=== PATIENT | male | born 1980 | race Caucasian/White ===

== ENCOUNTER 2016-08-23 16:59 | Emergency (ER) ==
[2016-08-23 17:01] VITALS: BP 142/93; TEMP 98.4; BMI 34.9
--- NOTE | 2016-08-23 17:32 | ED.PDOC ---
[id number]: dental pain Time Seen by Physician: 17:00 Mode of Arrival: Walk-In Information Source: Patient Exam Limitations: No limitations Nursing and Triage Documentation Reviewed and Agree: Yes EENT Complaint Exam - Dental/Oral Complaint/Exam Mechanism of Injury: No known trauma Symptoms Are: Still present Timing: Constant Initial Severity: Moderate Current Severity: Moderate Character: Reports: Aching, Throbbing Aggravating: Reports: Heat, Cold, Chewing Associated Signs and Symptoms: Denies: Swelling, Discharge, Fever, Foul odor, Foul taste in mouth Related History: Reports: Similar episode Cardiac Risk Factors: Reports: None Dental/Oral Surgical History: Reports: None Tooth Findings: Present: Gross decay Cervical Lymphadenopathy Present: No Facial Swelling Present: No Bleeding Present: No Oropharynx Findings: Absent: Clots, Active bleeding Septal Hematoma: No Foreign Body Present: No Dysphagia Present: No Drooling Present: No Asymmetrical Tonsillar Swelling Present: No Uvula Midline: Yes Harmony-tonsillar Fluctuence: No Trismus Present: No Palatal Petechiae Present: No Scarlatinaform Rash Present: No Teeth Picture: 1 - decay Differential Diagnoses: Dental Caries Review of Systems - Review Of Systems Constitutional: Reports: No symptoms Eyes: Reports: No symptoms Ears, Nose, Mouth, Throat: Reports: No symptoms Respiratory: Reports: No symptoms Cardiac: Reports: No symptoms GI: Reports: No symptoms : Reports: No symptoms Musculoskeletal: Reports: No symptoms Skin: Reports: No symptoms Neurological: Reports: No symptoms Endocrine: Reports: No symptoms Hematologic/Lymphatic: Reports: No symptoms All Other Systems: Reviewed and Negative Past Medical History - Past Medical History Previously Healthy: Yes Endocrine: Reports: None Cardiovascular: Reports: None Respiratory: Reports: None Hematological: Reports: None Gastrointestinal: Reports: Other (HEPC) Genitourinary: Reports: None Neuro/Psych: Reports: None Musculoskeletal: Reports: Back Pain Cancer: Reports: None Other Pertinent Past Medical History: sx RIGHT ANKLE BACK PAIN - Surgical History General Surgical History: Reports: Orthopedic (sx RIGHT ANKLE) - Family History Family History: Reports: Unknown - Social History Smoking Status: Current every day smoker, Light tobacco smoker Hx Substance Use: No Alcohol Screening: Occasionally Physical Exam - Physical Exam Appearance: Well-appearing, No pain distress, Well-nourished Eyes: SUSANNE, EOMI, Conjunctiva clear ENT: Ears normal, Nose normal, Oropharynx normal Respiratory: Airway patent, Breath sounds clear, Breath sounds equal, Respirations nonlabored Cardiovascular: RRR, Pulses normal, No rub, No murmur GI/: Soft, Nontender, No masses, Bowel sounds normal, No Organomegaly Musculoskeletal: Normal strength, ROM intact, No edema, No calf tenderness Skin: Warm, Dry, Normal color Neurological: Sensation intact, Motor intact, Reflexes intact, Cranial nerves intact, Alert, Oriented Psychiatric: Affect appropriate, Mood appropriate Critical Care Note - Critical Care Note Total Time (mins): 0 Course - Course Vital Signs: Temp Pulse Resp BP Pulse Ox 08/23/16 16:59 98.4 F 70 18 142/93 H 97 Departure - Departure Time of Disposition: 17:31 Disposition: HOME SELF-CARE Discharge Problem: Toothache Instructions: Toothache (ED), Dental Caries (ED) Condition: Good Pt referred to PMD for follow-up: No Additional Instructions: Please call your Family Physician as soon as possible to schedule a follow-up appointment. Prescriptions: Hydrocodone/Acetaminophen [[place] 5-325 Tablet] 1 each PO Q6HR PRN #12 tablet PRN Reason: PAIN Amoxicillin 500 mg PO Q8HR #21 tablet Allergies/Adverse Reactions: Allergies codeine Adverse Reaction (Verified 08/23/16 17:01) Home Medications: Ambulatory Orders Gabapentin [Neurontin] 600 mg PO TID 05/10/16 Ibuprofen 800 mg PO TID #30 tablet 05/10/16 Amoxicillin 500 mg PO Q8HR #21 tablet 08/23/16 Hydrocodone/Acetaminophen [[place] 5-325 Tablet] 1 each PO Q6HR PRN #12 tablet 01/02
== END 2016-08-23 17:36 | disposition home or self-care (01) ==
LOC: ED 16:59
DX: K08.89 Other specified disorders of teeth and supporting structures (principal); K02.7 Dental root caries; F17.210 Nicotine dependence, cigarettes, uncomplicated; Z79.899 Other long term (current) drug therapy
CPT/HCPCS: 99282

== ENCOUNTER 2017-10-06 13:19 | Outpatient (CLI) ==
--- NOTE | 2017-10-06 14:27 | DI ---
Exam: Four x-rays of the cervical spine. Comparison: CT performed 11/30/2015. Reason for exam: Neck pain. FINDINGS: Operative changes are seen after anterior cervical discectomy and fusion spanning C5-6. T here is no evidence of hardware complication or graft extrusion. There is a normal appearing cervica l lordotic curve. The prevertebral soft tissues are within normal limits. No acute fracture or list hesis. The dens is intact on the open-mouth odontoid view. Impression: 1. Operative changes after anterior cervical discectomy and fusion spanning C5-C6 without evidence o f hardware complication. 2. No acute fracture or listhesis in the cervical spine
== END 2017-10-06 13:20 | disposition home or self-care (01) ==
LOC: LAB 13:19
PROVIDERS: ATTEND Nurse Practitioner Family
DX: Z20.2 Contact with and (suspected) exposure to infections with a predominantly sexual mode of transmission (principal); M54.2 Cervicalgia; K21.9 Gastro-esophageal reflux disease without esophagitis; R41.3 Other amnesia; G89.4 Chronic pain syndrome; E66.9 Obesity, unspecified
CPT/HCPCS: 36415; 80053; 80061; 80074; 80306; 81001; 84439; 84443; 85025; 86592; 86631; 86677; 86695; 86696; 86701; 87800

== ENCOUNTER 2018-03-20 20:16 | Emergency (ER) ==
[2018-03-20 20:19] VITALS: BMI 38.3
[2018-03-20] MEDS ORDERED: LACTATED RINGERS 1,000 ML IV STA (20:52)
[2018-03-20] MEDS ORDERED: MORPHINE 2 MG/ML SYRINGE IVP STA (21:41)
[2018-03-20] MEDS ORDERED: ZOFRAN 4 MG/2 ML IVP STA (21:41)
--- NOTE | 2018-03-20 23:07 | CT ---
EXAM: CT scan abdomen pelvis without contrast HISTORY: Abdominal pain COMPARISON: None. FINDINGS: Contiguous axial images obtained from lung bases to the symphysis pubis without contrast u tilizing 3-mm collimation. Sagittal and coronal reconstructions were imaged and reviewed. There is a 7.5 mm nodule the right lung base which merits follow-up. Gallbladder is fluid filled without anu lithiasis. The liver, pancreas, spleen and adrenal glands have normal unenhanced CT appearance. The abdominal aorta is normal in course caliber without aneurysm. There are prominent air and fluid tanner led loops of small bowel within the left abdomen which may be related to ileus versus gastroenteritis . There is a normal appendix. There is a small umbilical hernia containing only fat.. The prostate gland normal in size. The bladder is small volumed limiting evaluation.. There is no free fluid or inflammatory changes. Degenerative changes are seen within the lower lumbar spine appear IMPRESSION: 7.5 mm nodule right lung base which merits follow-up. Prominent small bowel loops left abdomen which may be related to ileus versus gastroenteritis. No free fluid or inflammatory changes
--- NOTE | 2018-03-20 23:26 | ED.PDOC ---
General ED Provider: Dr. PA THAO Chief Complaint: Abdominal Pain Stated Complaint: Patient is a 38 year old male who comes to the ER with complains of feeling dehydrated. He did not give us a good history but family states he has had problems with Alcohol abuse. States he has cramping on the legs and chest area for one day. He denies any Drug use on initial history taking. Admitted to [facility] after being confronted with Test results. was seen at [facility] for Tooth ache. Time Seen by Physician: 20:30 Mode of Arrival: Walk-In Information Source: Patient Exam Limitations: No limitations Primary Care Provider: KAL PRICE Seen Within Last 72 Hours for Same Complaint By: ED Nursing and Triage Documentation Reviewed and Agree: Yes Does patient meet sepsis criteria?: No System Inflammatory Response Syndrome: Pulse >90 BPM Sepsis Protocol: For patient's 13 years and over: Temp is 96.8 and below OR 101 and greater Pulse >90 BPM Resp >20/minute Acutely Altered Mental Status Are patient's symptoms suggestive of a new infection, such as: -Pneumonia -Skin, Soft Tissue -Endocarditis -UTI -Bone, Joint Infection -Implantable Device -Acute Abdominal Infection -Wound Infection -Meningitis -Blood Stream Catheter Infection -Unknown Musculoskeletal Complaint Exam - Lower Extremity Complaint/Exam Location of Pain: Reports: Right, Left Mechanism of Injury: Reports: No known trauma Onset/Duration: 1 day Symptoms Are: Still present Location: Reports: Diffuse Character: Reports: Spasmodic Alleviating: Reports: None Aggravating: Reports: Movement, Prolonged standing Able to Bear Weight: Yes DVT Risk Factors: Reports: None Septic Arthritis Risk Factors: Reports: None Related Surgical History: Reports: None Differential Diagnoses: Strain, Sprain, Other (Rhabdomyolysis ) Review of Systems - Review Of Systems Constitutional: Reports: No symptoms Eyes: Reports: No symptoms Ears, Nose, Mouth, Throat: Reports: No symptoms Respiratory: Reports: No symptoms Cardiac: Reports: Chest pain GI: Reports: No symptoms : Reports: No symptoms Musculoskeletal: Reports: Muscle pain Skin: Reports: No symptoms Neurological: Reports: Anxiety Endocrine: Reports: No symptoms Hematologic/Lymphatic: Reports: No symptoms All Other Systems: Reviewed and Negative Past Medical History - Past Medical History Previously Healthy: Yes Endocrine: Reports: None Cardiovascular: Reports: None Respiratory: Reports: None Hematological: Reports: None Gastrointestinal: Reports: Other (HEP C) Genitourinary: Reports: None Neuro/Psych: Reports: None Musculoskeletal: Reports: Back Pain Cancer: Reports: None Other Pertinent Past Medical History: sx RIGHT ANKLE BACK PAIN, Alcohol use and Dependence, Drug dependence. - Surgical History General Surgical History: Reports: Orthopedic (sx RIGHT ANKLE) - Family History Family History: Reports: Unknown - Social History Smoking Status: Current every day smoker, Heavy tobacco smoker Hx Substance Use: No Alcohol Screening: Occasionally - Immunizations Tetanus Shot up to Date: Yes Physical Exam - Physical Exam Appearance: Ill-appearing, Obese (umkempt ) Ill-appearing: Moderate Pain Distress: Severe Neck: Supple Respiratory: Airway patent, Breath sounds clear, Breath sounds equal, Respirations nonlabored Cardiovascular: Tachycardia GI/: Soft, Nontender, No masses, Bowel sounds normal, No Organomegaly Musculoskeletal: Normal strength, ROM intact, No edema, No calf tenderness Skin: Warm, Dry, Normal color Neurological: Sensation intact, Cranial nerves intact, Alert, Oriented Psychiatric: Anxious Interpretation - Radiology Interpretation Radiology Interpretation By: Radiologist Radiology Results: Negative Exam Interpreted: CT Scan (Abdomen ) - EKG Interpretation Time of EKG #1: 20:52 Rate: Tachy Rhythm: Sinus Ectopy: None [place]: NL ST Segment: Normal Interpretation: Sinus Tachycardia Re-Evaluation - Re-Evaluation Time of Re-Evaluation: 23:57 Status: Improved (but still in pain, wants more pain medication. ) Vital Signs Stable: Yes Physician Notification - Case Discussed Physician Notified: Ruxer Time of Notification: 00:05 Critical Care Note - Critical Care Note Total Time (mins): 35 Course - Course Hematology/Chemistry: 03/20/18 20:56 03/20/18 20:56 Orders, Labs, Meds: Lab Review 03/20/18 03/20/18 03/20/18 20:50 20:56 20:56 WBC 11.43 H RBC 5.27 Hgb 16.2 Hct 44.3 MCV 84.1 MCH 30.7 MCHC 36.6 H RDW Coeff of Noah 13.2 Plt Count 229 Immature Gran % (Auto) 0.6 Neut % (Auto) 61.7 Lymph % (Auto) 24.8 [place] % (Auto) 11.7 H Eos % (Auto) 0.6 Baso % (Auto) 0.6 Immature Gran # (Auto) 0.1 Neut # (Auto) 7.0 H Lymph # (Auto) 2.8 [place] # (Auto) 1.3 Eos # (Auto) 0.1 Baso # (Auto) 0.1 Sodium 134.0 L Potassium 3.30 L Chloride 93.0 L Carbon Dioxide 25.0 Anion Gap 19.30 BUN 30.0 H Creatinine 1.70 H Estimated GFR (MDRD) 46.00 BUN/Creatinine Ratio 17.64 Glucose 126.0 H Calcium 10.20 Magnesium 1.96 Total Bilirubin 1.50 H AST 128.0 H ALT 90.0 H Alkaline Phosphatase 71.0 Total Creatine Kinase 8366.0 H CK-MB (CK-2) 15.300 H* CK-MB (CK-2) % 0.1800 Troponin I < 0.012 Total Protein 8.70 H Albumin 4.80 Globulin 3.90 Albumin/Globulin Ratio 1.23 Amylase 67.8 Lipase 109.5 Urine Color Urine Clarity Urine pH Ur Specific Merino Urine Protein Urine Glucose (UA) Urine Ketones Urine Blood Urine Nitrite Urine Bilirubin Urine Urobilinogen Ur Leukocyte Esterase Urine Microscopic RBC Ur Squamous Epith Cells Amorphous Sediment Urine Bacteria Hyaline Casts Urine Opiates Screen Ur Oxycodone Screen Urine Methadone Screen Ur Propoxyphene Screen Ur Barbiturates Screen U Tricyclic Antidepress Ur Phencyclidine Scrn Ur Amphetamine Screen U Methamphetamines Scrn U Benzodiazepines Scrn Urine Cocaine Screen U Cannabinoids Screen Plasma/Serum Alcohol 03/20/18 03/20/18 03/20/18 20:56 22:32 22:32 WBC RBC Hgb Hct MCV MCH MCHC RDW Coeff of Noah Plt Count Immature Gran % (Auto) Neut % (Auto) Lymph % (Auto) [place] % (Auto) Eos % (Auto) Baso % (Auto) Immature Gran # (Auto) Neut # (Auto) Lymph # (Auto) [place] # (Auto) Eos # (Auto) Baso # (Auto) Sodium Potassium Chloride Carbon Dioxide Anion Gap BUN Creatinine Estimated GFR (MDRD) BUN/Creatinine Ratio Glucose Calcium Magnesium Total Bilirubin AST ALT Alkaline Phosphatase Total Creatine Kinase CK-MB (CK-2) CK-MB (CK-2) % Troponin I Total Protein Albumin Globulin Albumin/Globulin Ratio Amylase Lipase Urine Color Yellow Urine Clarity Clear Urine pH 5.5 Ur Specific Merino >=1.030 Urine Protein 2+ Urine Glucose (UA) Negative Urine Ketones Trace Urine Blood 2+ Urine Nitrite Negative Urine Bilirubin 1+ Urine Urobilinogen 0.2 Ur Leukocyte Esterase Negative Urine Microscopic RBC 2-5 Ur Squamous Epith Cells 0-2 Amorphous Sediment 1+ Urine Bacteria Trace Hyaline Casts 2-5 Urine Opiates Screen Positive Ur Oxycodone Screen Negative Urine Methadone Screen Negative Ur Propoxyphene Screen Negative Ur Barbiturates Screen Negative U Tricyclic Antidepress Negative Ur Phencyclidine Scrn Negative Ur Amphetamine Screen Positive U Methamphetamines Scrn Positive U Benzodiazepines Scrn Positive Urine Cocaine Screen Negative U Cannabinoids Screen Positive Plasma/Serum Alcohol < 10.0 Orders Category Date Time Status EKG-(ED ONLY) Stat CARDIO 03/20/18 20:42 Completed ED IV/MEDIPORT/POWERPORT .ONCE EMERGENCY 03/20/18 20:52 Active AMYLASE Stat LAB 03/20/18 20:56 Completed CBC W/ AUTO DIFF Stat LAB 03/20/18 20:56 Completed COMPREHENSIVE METABOLIC PANEL Stat LAB 03/20/18 20:56 Completed CREATINE KINASE Stat LAB 03/20/18 20:56 Completed ETOH LEVEL [BLOOD ALCOHOL] Stat LAB 03/20/18 20:56 Completed LIPASE Stat LAB 03/20/18 20:56 Completed MAGNESIUM Stat LAB 03/20/18 20:50 Completed TROPONIN I Stat LAB 03/20/18 20:56 Completed URINALYSIS C & S IF INDICATED Stat LAB 03/20/18 22:32 Completed URINE DRUG SCREEN (RAPID FOR ED) [DRUG SCREEN, URINE, LAB 03/20/18 22:32 Completed RAPID] Stat 0.9 % Sodium Chloride [Saline Flush] MEDS 03/20/18 20:52 Ordered 1 syr IVF PRN PRN Morphine Sulfate [Morphine 2 mg/ml Syringe] MEDS 03/20/18 21:41 Discontinued 2 mg IVP ONCE STA Ondansetron HCl/Pf [Zofran 4 mg/2 ml] MEDS 03/20/18 21:41 Discontinued 4 mg IVP ONCE STA Ringers Lactated Solution [Lactated Ringers] 1,000 ml MEDS 03/20/18 20:52 Discontinued IV BOLUS Sodium Chloride 0.9% [Sodium Chloride] 1,000 ml MEDS 03/20/18 23:[address] ABDOMEN/PELVIS WO CONTRAST Stat RADS 03/20/18 22:17 Completed Medications Generic Name Dose Route Start Last Admin Trade Name Freq PRN Reason Stop Dose Admin Sodium Chloride 1,000 mls @ 500 mls/hr 03/20/18 23:27 03/20/18 23:54 Sodium Chloride IV 03/21/18 01:26 500 mls/hr BOLUS STA Administration Sodium Chloride 1 syr 03/20/18 20:52 Saline Flush IVF PRN PRN To flush IV Discontinued Medications Generic Name Dose Route Start Last Admin Trade Name Kristin PRN Reason Stop Dose Admin Lactated Ringer's 1,000 mls @ 1,000 mls/hr 03/20/18 20:52 03/20/18 21:38 Lactated Ringers IV 03/20/18 21:51 1,000 mls/hr BOLUS STA Administration Morphine Sulfate 2 mg 03/20/18 21:41 03/20/18 21:49 Morphine 2 Mg/Ml Syringe IVP 03/20/18 21:42 2 mg ONCE STA Administration Ondansetron HCl 4 mg 03/20/18 21:41 03/20/18 21:49 Zofran 4 Mg/2 Ml IVP 03/20/18 21:42 4 mg ONCE STA Administration Vital Signs: Temp Pulse Resp BP Pulse Ox 03/20/18 20:16 98.8 F 113 H 20 150/90 H 98 Departure - Departure Time of Disposition: 00:11 Disposition: TSF SHORT-TRM HOSP Discharge Problem: Acute kidney injury, Drug abuse and dependence Rhabdomyolysis Qualifiers: Rhabdomyolysis type: non-traumatic Qualified Code(s): M62.82 - Rhabdomyolysis Condition: Fair Pt referred to PMD for follow-up: No IPMP verified?: No Allergies/Adverse Reactions: Allergies codeine Adverse Reaction (Verified 03/20/18 20:19) Home Medications: Ambulatory Orders Duloxetine HCl [Cymbalta] 20 mg PO DAILY 03/20/18 Pt. Stabilized Within Hospital's Capabilities/Transferred To: [facility] Transfer Form Completed: Yes Disposition Discussed With: Patient, Family
[2018-03-20] MEDS ORDERED: SODIUM CHLORIDE 1,000 ML IV STA (23:27)
[2018-03-21 00:37] VITALS: BP 143/95; TEMP 98.7
== END 2018-03-21 00:37 | disposition short-term general hospital (02) ==
LOC: ED 20:16
DX: M62.82 Rhabdomyolysis (principal); S37.009A Unspecified injury of unspecified kidney, initial encounter; F19.20 Other psychoactive substance dependence, uncomplicated; R10.9 Unspecified abdominal pain; F10.10 Alcohol abuse, uncomplicated; R25.2 Cramp and spasm; R07.9 Chest pain, unspecified; M79.10 Myalgia, unspecified site; F17.210 Nicotine dependence, cigarettes, uncomplicated; R00.0 Tachycardia, unspecified
CPT/HCPCS: 36415; 80053; 80306; 80307; 81001; 82150; 82550; 82553; 83690; 83735; 84484; 85025; 93005; 93010; 96361; 96374; 96375; 99285

== ENCOUNTER 2018-03-21 00:36 | Outpatient (CLI) ==
[2018-03-20 20:19] VITALS: BMI 38.3
== END 2018-03-21 00:37 | disposition home or self-care (01) ==
LOC: AMBL 00:36
PROVIDERS: ATTEND Family Medicine
DX: N17.9 Acute kidney failure, unspecified (principal)